=== PATIENT | female | born 1990 | race Caucasian/White ===

== ENCOUNTER 2019-05-22 14:00 | Outpatient (CLI) | payer BC ==
[2019-05-22 21:03] LABS: COLLECTION PERIOD 24 hrs
[2019-05-22 21:28] LABS: COLLECTION PERIOD 24 hrs; CREATININE CLEARANCE 255.1 mls/min (84.0-162.0); SCRET 0.42 mg/dl (0.44-1.00); VOLUME 1400 ml/24hrs; VOLUME 1400 mls
== END 2019-05-22 22:15 | disposition home or self-care (01) ==
LOC: OBT 14:00 → L-D 14:01 → OBT 14:01 → L-D 19:39 → OBT 22:15
DX: O26.892 Other specified pregnancy related conditions, second trimester (principal); R03.0 Elevated blood-pressure reading, without diagnosis of hypertension; Z3A.25 25 weeks gestation of pregnancy
CPT/HCPCS: 82575; 84156